=== PATIENT | male | born 1940 | race Caucasian/White ===

== ENCOUNTER 2025-06-14 11:06 | Observation (INO) ==
--- NOTE | 2025-06-12 08:37 | Anesthesiology Consultation ---
Date of Service June 12, 2025 Assessment & Plan (1) Encounter for pre-operative examination: Chart Review Chart Review: Acceptable Risk for Surgery (pending DOS labs and EKG ) and Patient NOT seen in Pre Admission Testing - Check CBC with diff and BMP stat DOS (not done preoperatively) - Check EKG stat DOS (EKG scanned from 08/23/24 cannot be read due to poor quality) - Check BSG AM DOS -Infectious Disease screening: Per PAT nursing assessment on 06/08/25. No known infectious disease contacts in past 10 days or current infectious disease symptoms. No recent travel outside the country. Cardiology preop letter 06/05/25= "Patient is considered "low to intermediate cardiac risk" for upcoming procedure... Hold Plavix for 7 days. (Spoke with patient 06/12/25 as Plavix is not noted in medication list and he states cardiology took him off Plavix a month ago; no mention of cardiology discontinuing med per cardio records- did inform cardio office on 06/12/25 that patient believed he was not to take Plavix any longer- will leave to behavioral health specialist's discretion if that is correct and to follow up with patient if n eeded ) History Surgery Operation Date: 06/14/25 11:20 Proposed Procedures p Right Superficial Parotidectomy with Facial Never Dissection and Possible Right Selective Neck Dissection - Guillaume Robledo II, MD Height/Weight Height: 5 ft 10 in Weight: 69.853 kg Allergies Allergy/AdvReac Type Severity Reaction Status Date / Time ciprofloxacin Allergy Unknown Unknown Verified 06/08/25 10:20 gentamicin Allergy Unknown Unknown Verified 06/08/25 10:20 niacin Allergy Unknown Unknown Verified 06/08/25 10:20 Penicillins Allergy Unknown Rash Verified 06/08/25 10:20 simvastatin [From Zocor] Allergy Unknown Unknown Verified 06/08/25 10:20 Medications Home Medications Medication Instructions Recorded Confirmed Last Taken aspirin 81 mg chewable tablet 81 mg PO QPM 05/10/25 06/08/25 Unknown (Faviola Chewable Low Dose Aspirin) atorvastatin 80 mg tablet 40 mg PO QPM 05/10/25 06/08/25 Unknown cholecalciferol (vitamin D3) 25 25 mcg PO DAILY 05/10/25 06/08/25 Unknown mcg (1,000 unit) tablet ferrous sulfate 325 mg (65 mg 325 mg PO BID 05/10/25 06/08/25 Unknown iron) tablet glipizide 5 mg tablet 5 mg PO BID 05/10/25 06/08/25 Unknown isosorbide mononitrate 60 mg 60 mg PO QAM 05/10/25 06/08/25 Unknown tablet,extended release 24 hr loratadine 10 mg tablet 10 mg PO QPM 05/10/25 06/08/25 Unknown magnesium oxide 420 mg tablet 420 mg PO HS 05/10/25 06/08/25 Unknown metformin 500 mg tablet 500 mg PO UD 05/10/25 06/08/25 Unknown omeprazole 20 mg capsule,delayed 40 mg PO BID 05/10/25 06/08/25 Unknown release Past Medical History Medical History Atherosclerotic heart disease of [place] coronary artery with unspecified angina pectoris - follows with [facility] - PCI/VIKAS to mid LAD 10/21/23 - PTCA/stent of ostial LAD 07/25/2009 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 Basal cell carcinoma of skin Benign prostatic hyperplasia Carotid artery disease <50% stenosis to bilateral ICAs per carotid imaging 12/2023 per cardio office visit 02/21/25 Chronic rhinitis Diabetes Epiglottic cyst Gastro-esophageal reflux disease without esophagitis High blood pressure HLD (hyperlipidemia) Hoarseness 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 LV normal systolic function. EF 60%. Trace MR, trace to mild TR, mild OH Normal pulm artery pressures Grade I DD (ECHO report is per 02/21/25 cardio office visit- attempted multiple times to get actual report but was unsuccessful) Cardiac Catheterization Date: 10/21/23 Ost LAD to Prox LAD lesion is 10% stenosed Prox LAD to mid LAD lesions is 90% stenosed Mid LAD lesion is 20% stenosed Prox LAD to Mid LAD reduced to 0% Conclusions: Severe longer 90% heavily calcified proximal LAD stenosis. Successful PCI with VIKAS to prox to mid LAD. Patient stent in the ostial LAD
[2025-06-14 10:57] LABS: Hematocrit (blood only) 42.3 % (42.0-52.0); Hemoglobin 13.9 g/dl (14.0-18.0); Immature Granulocytes # (auto) 0.02 K/uL (0.01-0.20); Immature Granulocytes % (auto) 0.3 %; Mean Corpuscular Hemoglobin 28.1 pg (25.0-34.0); Mean Corpuscular Volume 85.6 fL (80.0-100.0); Platelet Count 219 K/uL (130-400); RDW Standard Deviation 38.5 fL (36.4-46.3); Red Blood Count 4.94 M/uL (4.70-6.10); White Blood Count 6.34 K/ul (4.8-10.8)
[2025-06-14] MEDS: LR 15ML/HR IV SCH (11:06)
[2025-06-14 11:07] LABS: Anion Gap 9.0 (3-11); Blood Urea Nitrogen 20.0 mg/dl (6-23); Calcium 9.5 mg/dl (8.6-10.3); Carbon Dioxide 28.0 mmol/L (21-32); Chloride 101.0 mmol/L (98-107); Creatinine Clr Calc Pharmacy 65.3 ml/min; Glucose 207.0 mg/dl (70-99(Fasting)); Potassium 4.6 mmol/L (3.5-5.1); Sodium 138.0 mmol/L (136-145)
--- NOTE | 2025-06-14 11:34 | History & Physical Bridge Note ---
Date of Service June 14, 2025 History & Physical Bridge Note I have examined the patient, reviewed the History & Physical and in the interval since the performance of the History & Physical I have noted the following changes of clinical significance: no changes noted
[2025-06-14] MEDS ORDERED: ATROPINE SULFATE 0.1 MG/ML 10ML SYR IV PRN (12:45)
[2025-06-14] MEDS ORDERED: ONDANSETRON INJ 2 MG/ML 2 ML VIAL IV PRN ×2 (12:45→14:52)
[2025-06-14] MEDS ORDERED: PROPOFOL IV EMULSION 10 MG/ML 20 ML VIAL IV ONE (12:56)
[2025-06-14] MEDS ORDERED: LIDOCAINE 2% 2 ML VIAL/AMP(20MG/ML) INFIL ONE (12:56)
[2025-06-14] MEDS ORDERED: SUCCINYLCHOLINE CHLORIDE 20 MG/ML 10 ML VIAL IV ONE (12:56)
[2025-06-14] MEDS ORDERED: REMIFENTANIL HCL 1 MG VIAL IV ONE (13:01)
[2025-06-14] MEDS: CLINDAMYCIN/D5W 900 MG/50 ML BAG IV SCH (13:07)
[2025-06-14] MEDS ORDERED: KETOROLAC TROMETHAMINE 15 MG/ML VIAL IV PRN (13:15)
[2025-06-14] MEDS: CLINDAMYCIN 900 MG/D5W 50 ML BAG IV ONE (13:45)
[2025-06-14] MEDS ORDERED: ROCURONIUM BROMIDE 10 MG/ML 5 ML VIAL IV ONE (13:51)
[2025-06-14] MEDS ORDERED: ONDANSETRON INJ 2 MG/ML 2 ML VIAL ONE (13:56)
[2025-06-14] MEDS ORDERED: DEXAMETHASONE SOD INJ 4 MG/ML VIAL ONE (13:56)
[2025-06-14] MEDS: LIDOCAINE 1%/EPINEPHRINE 1:100,000 50 ML VIAL ONE (14:35)
[2025-06-14] MEDS: BACITRACIN OINT 14 GM TUBE EXT ONE (14:36)
[2025-06-14] MEDS ORDERED: HYDROCODONE/ACETAMOPHEN 5/325MG TAB PO PRN (14:52)
--- NOTE | 2025-06-14 14:52 | Operative Report ---
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 Fibrotic attachments to the sternocleidomastoid muscle were able to be transected and the tumor mobilized without violating the capsule grossly. Is able to preserve lower division of the facial nerve and all its branches. There was no adenopathy otherwise in the neck or face. Facial nerve function and normally with stimulation at the main trunk with point 8 mA stimulation upon completion Specimens Right superficial parotid lobe containing tumor Anesthesia Type General Disposition Accompanied Patient To Recovery: Yes Disposition: Recovery Room Description of Procedure Patient was explained the risks and the consent signed. He confirmed the right parotid gland is a surgical site that was marked in holding. He was taken the operating room and general anesthesia induced avoiding long-acting paralytic agents. Nims facial nerve percutaneous electrodes were placed and functionality of the system verified. I planned an incision in the preauricular crease around the ear lobule into a superior cervical crease on the right and the face was sterilely prepped and draped with the entire face visible through an Ioban. The skin was incised down through subcutaneous tissue to identify the preparotid plane. A flap was elevated along this plane to expose the superficial surface of the parotid gland. Inferiorly the mass could be palpated. It was mobilized away from the sternocleidomastoid muscle in all directions using blunt and sharp dissection without violating the mass. The undersurface of the mass was elevated off the muscle and retracted superiorly. The digastric muscle was identified deep to the sternocleidomastoid muscle and soft tissue superficial to this was transected further mobilizing the inferior portion of the gland with the tumor. The preauricular preparotid attachments were bluntly dissected and transected with harmonic scalpel. The gland was retracted gently forward and the hemostat used to gently spread anterior to the tragal pointer to identify the main trunk of the facial nerve. Once visualized it was stimulated verifying the structure and soft tissue superficial to this plane was transected with the harmonic mobilizing the gland nicely. The inferior division of the facial nerve was followed forward dissecting parotid tissue off along a broad plane. This mobilized the tumor completely as it was elevated with a superior cuff of normal-appearing parotid tissue well away from all branches of the lower division of the facial nerve. Followed the zygomatic branch forward and superficial to this the harmonic scalpel was used to divide parotid tissue defining the superior margin of dissection. Final anterior attachments were transected and the lobe containing the tumor removed and passed as specimen. Wound was irrigated and confirmed to be hemostatic using judicious bipolar cautery. Floseal was applied throughout the wound. A 10 mm drain was laid within the wound and brought out through the inferior skin flap. The incision was closed in layers reapproximating subcutaneous and platysmal layers with interrupted 4-0 and 5-0 Vicryl. Running 5-0 nylon was used to close skin. Procedure was terminated sterile drain dressing was applied patient aroused and transported to the recovery room in stable condition I attest to the content of the Intraoperative Record and any orders documented therein. Any exceptions are noted below.
--- NOTE | 2025-06-14 15:47 | Anesthesiology Progress Note ---
Date of Service June 14, 2025 Anesthesia Post Procedure Vital Signs Vital Signs: Temp Pulse Pulse Resp BP BP Pulse Ox 06/14/25 15:40 68 12 174/80 H 100 06/14/25 15:30 67 16 166/82 H 100 06/14/25 15:20 68 12 170/92 H 100 06/14/25 15:12 36.0 C L 67 16 169/78 H 100 06/14/25 10:49 36.3 C L 77 18 158/77 H 98 O2 Del Method O2 Flow Rate 06/14/25 15:40 Oxymask 2 06/14/25 15:30 Oxymask 2 06/14/25 15:20 Oxymask 4 06/14/25 15:12 Oxymask 6 06/14/25 10:49 Room Air Pain Intensity Right Neck: Pain Intensity: 6 Transfer of Care Handoff Completed per policy Notes Mental Status: alert / awake / arousable Patient Amnestic to Procedure: Yes Nausea / Vomiting: adequately controlled Pain: adequately controlled Airway Patency, RR, SpO2: stable & adequate BP & HR: stable & adequate Hydration State: stable & adequate Anesthetic Complications: no major complications apparent
[2025-06-14] MEDS: SODIUM CHLORIDE 0.9% 1,000 ML IV SCH (17:38)
--- NOTE | 2025-06-14 18:13 | Electrocardiogram Report ---
Test Reason : Blood Pressure : */* mmHG Vent. Rate : 72 BPM Atrial Rate : 72 BPM P-R Int : 146 ms QRS Dur : 90 ms QT Int : 422 ms P-R-T Axes : 42 36 50 degrees QTcB Int : 462 ms Normal sinus rhythm No previous ECGs available Confirmed by Rajendra Wiggins ([id number]) on 06/14/2025 6:13:14 PM Referred By: Guillaume Robledo Confirmed By: Rajendra Wiggins
[2025-06-14] MEDS ORDERED: CARBOHYDRATES FOR HYPOGLYCEMIA PO PRN (19:04)
[2025-06-14] MEDS ORDERED: DEXTROSE 50% 50 ML SYRINGE IV PRN (19:04)
[2025-06-14] MEDS ORDERED: GLUCOSE 40% GEL 15 GM TUBE PO PRN (19:04)
[2025-06-14] MEDS ORDERED: GLUCOSE 10 TAB/TUBE PO PRN (19:04)
[2025-06-14] MEDS ORDERED: diphenhydrAMINE Capsule 25 MG CAP PO PRN (19:04)
[2025-06-14] MEDS ORDERED: GLUCAGON FOR INJ 1 MG VIAL SQ PRN (19:04)
--- NOTE | 2025-06-14 19:20 | Hospitalist Consultation ---
Date of Consultation June 14, 2025 Assessment & Plan (1) Diabetes type 2: (2) CAD (coronary artery disease): (3) Insomnia: (4) High blood pressure: Plan # Postoperative status following right superficial parotidectomy with facial nerve dissection and right selective neck dissection No pain, minimal bruising, drain not draining significantly. Breathing well, no shortness of breath or chest pain. HR normal, afebrile, O2 sat 97% on room air, blood sugar 117. Labs: WBC normal, Hgb 13.9, platelets normal, Na 138, K 4.6, no anion gap, creatinine 0.85, Ca 9.5. EKG: normal sinus rhythm, no acute ischemic changes, mild elevation in V1, potential poor R wave progression. History of coronary disease, essential hypertension, hyperlipidemia, diabetes, carotid artery disease, former smoker. Home meds: Imdur 60 mg q.a.m. Previous cardiology notes: lisinopril 10 mg daily, Imdur 30 mg daily, metoprolol tartrate 25 mg b.i.d., nitroglycerin prn, aspirin, Plavix. Treatment plan: For hypertension: reduce Imdur to 30 mg daily, resume lisinopril 10 mg daily, resume metoprolol, monitor BP. For coronary artery disease: continue daily aspirin and atorvastatin, hold Plavix, continue beta-darin. For diabetes: glipizide 5 mg b.i.d., metformin 1500 mg b.i.d., continue if awake, alert, eating well, monitor blood glucose, short-acting premeal insulin prn. For DVT prophylaxis: subcutaneous heparin 5000 units q8h. # Postoperative hypertension - moderate, acute, asymptomatic and anticipate this will resolve with some time. Avoid overtreating since may cause hypotension. Monitor. History of essential hypertension but resolved and recently normotensive. Postoperative BP 150-174/77-92, likely related to anesthesia and fluid shifts. Treatment plan: Reduce Imdur to 30 mg daily which I think is his actual dose, oral clonidine PRN severe HTN with SBP>180 / DBP>100. # Coronary artery disease - stable History of coronary artery disease, coronary angiogram 10/21/2023 showing 90% proximal to mid LAD stenosis treated with PCI. Treatment plan: Continue daily aspirin and atorvastatin, imdur. No longer on plavix or beta darin # Diabetes mellitus Glipizide 5 mg b.i.d., metformin 1500 mg b.i.d. Treatment plan: Continue metformin since awake, alert, eating well, hold glipizide, monitor blood glucose, short-acting premeal insulin (CF only no CR) prn. # DVT Prophylaxis: subcutaneous heparin 5000 units q8h It was a pleasure to meet Mr. Barth and I will follow-up tomorrow, please page the [facility] hospitalist for any questions or concerns in the meantime Medical Complexity: moderate time spent for consultation 46 minutes - including chart review, outside record s review, reviewing his labs and studies, interviewing and examining patient, writing orders, documentation. History of Present Illness Reason for Consultation: Uncontrolled hypertension, CAD, DM type 2 Requesting Physician: Dr. Robledo Attending Physician: Guillaume Robledo II, MD History of Present Illness The patient consented to use of [employer], an AI based tool that will listen to our encounter and draft a clinical note based on our conversation. All notes will be reviewed and edited by me before entering them into the clinical record. Reason for Admit: Postoperative consultation following right superficial parotidectomy with facial nerve dissection and right selective neck dissection, postoperative hypertension 74-year-old male presents for postoperative consultation. Hypertensive with BP 150-174/77-92 postop, HR normal, afebrile, O2 sat 97% on room air. BP has significantly improved since immediately postop, now in 150s/80s and asymptomatic. He is not in pain nor anxious, no CP or shortness of breath. He has history of hypertension but he lost a lot of weight following surgery for gangrenous gallbladder this summer and recently has been normotensive to low. Monitors BP at home 2-3 times a week, typically 110/70. Discontinued lisinopril and metoprolol due to low BP. Takes Imdur and aspirin daily, not taken Plavix for some time. Takes atorvastatin for cholesterol. Patient feels well, no pain or discomfort, no pain swallowing or speaking. Active lifestyle, walks daily, regained weight through physical therapy and eating well, continues to walk and lift weights. Scheduled to see Dr. Robledo next Wednesday for postop follow up. No residual abdominal pain from gallbladder surgery, no nausea, vomiting, or diarrhea. Occasional leg edema, not severe. PMH: History of coronary disease, essential hypertension, hyperlipidemia, diabetes, carotid artery disease, remote former smoker. PSH: History of skin cancer treated with surgery. July 2000 colonoscopy led to removal of 6 inches of colon, biopsy negative for cancer. Allergies Allergy/AdvReac Type Severity Reaction Status Date / Time ciprofloxacin Allergy Unknown Unknown Verified 06/14/25 10:52 gentamicin Allergy Unknown Unknown Verified 06/14/25 10:52 niacin Allergy Unknown Unknown Verified 06/14/25 10:52 Penicillins Allergy Unknown Rash Verified 06/14/25 10:52 simvastatin [From Zocor] Allergy Unknown Unknown Verified 06/14/25 10:52 Home Medications Medication Instructions Recorded Confirmed Type aspirin 81 mg chewable tablet 81 mg PO QPM 05/10/25 06/14/25 History (Faviola Chewable Low Dose Aspirin) atorvastatin 80 mg tablet 40 mg PO QPM 05/10/25 06/14/25 History cholecalciferol (vitamin D3) 25 25 mcg PO DAILY 05/10/25 06/14/25 History mcg (1,000 unit) tablet ferrous sulfate 325 mg (65 mg 325 mg PO BID 05/10/25 06/14/25 History iron) tablet glipizide 5 mg tablet 5 mg PO BID 05/10/25 06/14/25 History isosorbide mononitrate 60 mg 60 mg PO QAM 05/10/25 06/14/25 History tablet,extended release 24 hr loratadine 10 mg tablet 10 mg PO QPM 05/10/25 06/14/25 History magnesium oxide 420 mg tablet 420 mg PO HS 05/10/25 06/14/25 History metformin 500 mg tablet 500 mg PO UD 05/10/25 06/14/25 History omeprazole 20 mg capsule,delayed 40 mg PO BID 05/10/25 06/14/25 History release Patient History Medical History Carotid artery disease <50% stenosis to bilateral ICAs per carotid imaging 12/2023 per cardio office visit 02/21/25 HLD (hyperlipidemia) Parotid neoplasm Chronic rhinitis Epiglottic cyst Hoarseness Gastro-esophageal reflux disease without esophagitis Diabetes High blood pressure Unspecified hearing loss, unspecified ear 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 Benign prostatic hyperplasia Basal cell carcinoma of skin 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 - follows with [facility] - PCI/VIKAS to mid LAD 10/21/23 - PTCA/stent of ostial LAD 07/25/2009 Surgical History History of cholecystectomy 03/30/25 per [place] records History of heart artery stent (10/2023) and 2008 per records History of bowel resection History of cataract surgery Family History Other Cancer Heart disease Hypertension Social History Smoking Status: Never smoker Tobacco Type: Cigarettes packs per day: 1; Second Hand Exposure: No; Do You Dip or Chew Tobacco: No; Tobacco Cessation Education Requested by Patient: No Hx Alcohol Use: No Hx Substance Use: No Preferred Language: Setswana Hearing Ability: Use of Hearing Aid Shadowgraph Operator Required: No Beliefs That Will Affect Care: None marital status: Current Living Situation: Spouse current occupational status: employed current occupation: [employer] Other Information That Helps Us Care for You: No Feels Safe at Home: Yes Safety Concerns: Feels Safe At This Time caffeine: Yes Dental Care, Regularly: No Assistive Devices: Hearing Aid - Bilateral Review of Systems Review of Systems: All systems reviewed & are unremarkable except as noted in HPI & below Physical Exam Physical Exam: General Appearance: Normal. Vital signs: Within normal limits. HEENT: Scars on scalp. Large bandage with drain on right cheek, normal with no strikethrough. Respiratory: Lungs clear bilaterally, good expansion. Cardiovascular: Regular rhythm, no murmurs, rubs, or gallops. Gastrointestinal: Soft, nondistended, nontender. Extremities: No edema, warm, well perfused. Skin: Scars on scalp no lesions except one papule. Large bandage with drain on right cheek, normal with no strikethrough. Mild bruising over right clavicle, no hematoma. Neurological: Alert and oriented x4, moving all extremities normally. Psychiatric: Normal. Results & Data Results & Data Vital Signs (Past 12 Hours) Vital Signs Temp Pulse Pulse Resp BP BP Pulse Ox 06/14/25 17:40 36.5 C 83 14 159/78 H 97 06/14/25 16:50 36.5 C 72 14 163/73 H 97 06/14/25 16:20 36.5 C 73 14 174/79 H 99 06/14/25 16:10 70 16 155/72 H 97 06/14/25 16:00 36.4 C L 69 16 167/83 H 96 06/14/25 15:50 67 14 169/77 H 100 06/14/25 15:40 68 12 174/80 H 100 06/14/25 15:30 67 16 166/82 H 100 06/14/25 15:20 68 12 170/92 H 100 06/14/25 15:12 36.0 C L 67 16 169/78 H 100 06/14/25 10:49 36.3 C L 77 18 158/77 H 98 O2 Del Method O2 Flow Rate 06/14/25 17:40 Room Air 06/14/25 16:50 Room Air 06/14/25 16:20 Room Air 06/14/25 16:10 Room Air 06/14/25 16:00 Room Air 06/14/25 15:50 Oxymask 2 06/14/25 15:40 Oxymask 2 06/14/25 15:30 Oxymask 2 06/14/25 15:20 Oxymask 4 06/14/25 15:12 Oxymask 6 06/14/25 10:49 Room Air Laboratory Results blood sugar 117. Labs: WBC normal, Hgb 13.9, platelets normal, differential normal, Na 138, K 4.6, no anion gap, creatinine 0.85, Ca 9.5. EKG: normal sinus rhythm, no acute ischemic changes, mild elevation in V1, poor R wave progression. PG Care Time/CCT Total # of Minutes Spent Total Time Spent with Patient: Total time spent is greater than 50% in coordination of care (as documented) at patient's floor/unit and/or counseling patient: Coding Level of Care Code 64900 IN/OBS CONSULT LVL 3,45M Diagnoses Diabetes type 2 E11.9 CAD (coronary artery disease) I25.10 Insomnia G47.00 High blood pressure I10
--- NOTE | 2025-06-14 19:26 | Hospitalist Consultation ---
Date of Consultation June 14, 2025 Assessment & Plan (1) Diabetes type 2: (2) CAD (coronary artery disease): (3) Insomnia: (4) High blood pressure: Plan 84 y/o man postoperative from right parotid surgery 06/14, had postoperative hypertension. Hx HTN (resolved), CAD, DM # Postoperative hypertension - moderate, acute, asymptomatic and anticipate this will resolve with some time. Avoid overtreating since may cause hypotension. Monitor. History of essential hypertension but resolved and recently normotensive. Postoperative BP 150-174/77-92, likely related to anesthesia and fluid shifts. Treatment plan: Reduce Imdur to 30 mg daily which I think is his actual dose, oral clonidine PRN severe HTN with SBP>180 / DBP>100. # Coronary artery disease - stable History of coronary artery disease, coronary angiogram 10/21/2023 showing 90% proximal to mid LAD stenosis treated with PCI. Treatment plan: Continue daily aspirin and atorvastatin, imdur. No longer on plavix or beta darin # Diabetes mellitus Glipizide 5 mg b.i.d., metformin 1500 mg b.i.d. Treatment plan: Continue metformin since awake, alert, eating well, hold glipizide, monitor blood glucose, short-acting premeal insulin (CF only no CR) prn. # DVT Prophylaxis: subcutaneous heparin 5000 units q8h It was a pleasure to meet Mr. Barth and I will follow-up tomorrow, please page the [facility] hospitalist for any questions or concerns in the meantime Medical Complexity: moderate time spent for consultation 46 minutes - including chart review, outside records review, reviewing his labs and studies, interviewing and examining patient, writing orders, documentation. History of Present Illness Reason for Consultation: uncontrolled postoperative hypertension, CAD, DM type 2 Requesting Physician: Dr. Robledo Attending Physician: Guillaume Robledo II, History of Present Illness The patient consented to use of [employer], an AI based tool that will listen to our encounter and draft a clinical note based on our conversation. All notes will be reviewed and edited by me before entering them into the clinical record. Reason for Admit: Postoperative consultation following right superficial parotidectomy with facial nerve dissection and right selective neck dissection, postoperative hypertension 74-year-old male presents for postoperative consultation. Hypertensive with BP 150-174/77-92 postop, HR normal, afebrile, O2 sat 97% on room air. BP has significantly improved since immediately postop, now in 150s/80s and asymptomatic. He is not in pain nor anxious, no CP or shortness of breath. He has history of hypertension but he lost a lot of weight following surgery for gangrenous gallbladder this summer and recently has been normotensive to low. Monitors BP at home 2-3 times a week, typically 110/70. Discontinued lisinopril and metoprolol due to low BP. Takes Imdur and aspirin daily, not taken Plavix for some time. Takes atorvastatin for cholesterol. Patient feels well, no pain or discomfort, no pain swallowing or speaking. Active lifestyle, walks daily, regained weight through physical therapy and eating well, continues to walk and lift weights. Scheduled to see Dr. Robledo next Wednesday for postop follow up. No residual abdominal pain from gallbladder surgery, no nausea, vomiting, or diarrhea. Occasional leg edema, not severe. PMH: History of coronary disease, essential hypertension, hyperlipidemia, diabetes, carotid artery disease, remote former smoker. PSH: History of skin cancer treated with surgery. July 2000 colonoscopy led to removal of 6 inches of colon, biopsy negative for cancer. Allergies Allergy/AdvReac Type Severity Reaction Status Date / Time ciprofloxacin Allergy Unknown Unknown Verified 06/14/25 10:52 gentamicin Allergy Unknown Unknown Verified 06/14/25 10:52 niacin Allergy Unknown Unknown Verified 06/14/25 10:52 Penicillins Allergy Unknown Rash Verified 06/14/25 10:52 simvastatin [From Zocor] Allergy Unknown Unknown Verified 06/14/25 10:52 Home Medications Medication Instructions Recorded Confirmed Type aspirin 81 mg chewable tablet 81 mg PO QPM 05/10/25 06/14/25 History (Faviola Chewable Low Dose Aspirin) atorvastatin 80 mg tablet 40 mg PO QPM 05/10/25 06/14/25 History cholecalciferol (vitamin D3) 25 25 mcg PO DAILY 05/10/25 06/14/25 History mcg (1,000 unit) tablet ferrous sulfate 325 mg (65 mg 325 mg PO BID 05/10/25 06/14/25 History iron) tablet glipizide 5 mg tablet 5 mg PO BID 05/10/25 06/14/25 History isosorbide mononitrate 60 mg 60 mg PO QAM 05/10/25 06/14/25 History tablet,extended release 24 hr loratadine 10 mg tablet 10 mg PO QPM 05/10/25 06/14/25 History magnesium oxide 420 mg tablet 420 mg PO HS 05/10/25 06/14/25 History metformin 500 mg tablet 500 mg PO UD 05/10/25 06/14/25 History omeprazole 20 mg capsule,delayed 40 mg PO BID 05/10/25 06/14/25 History release Patient History Medical History Carotid artery disease <50% stenosis to bilateral ICAs per carotid imaging 12/2023 per cardio office visit 02/21/25 HLD (hyperlipidemia) Parotid neoplasm Chronic rhinitis Epiglottic cyst Hoarseness Gastro-esophageal reflux disease without esophagitis Diabetes Unspecified hearing loss, unspecified ear 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 Benign prostatic hyperplasia Basal cell carcinoma of skin 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 Atherosclerotic heart disease of [place] coronary artery with unspecified angina pectoris - follows with [facility] - PCI/VIKAS to mid LAD 10/21/23 - PTCA/stent of ostial LAD 07/25/2009 Surgical History History of cholecystectomy 03/30/25 per [place] History of heart artery stent (10/2023) and 2008 per records History of bowel resection History of cataract surgery Family History Other Cancer Heart disease Hypertension Social History Smoking Status: Never smoker Tobacco Type: Cigarettes packs per day: 1; Second Hand Exposure: No; Do You Dip or Chew Tobacco: No; Tobacco Cessation Education Requested by Patient: No Hx Alcohol Use: No Hx Substance Use: No Preferred Language: Turkmen Hearing Ability: Use of Hearing Aid 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 Vital signs: Within normal limits. HEENT: Scars on scalp. Large bandage with drain on right cheek, normal with no strikethrough. Respiratory: Lungs clear bilaterally, good expansion. Cardiovascular: Regular rhythm, no murmurs, rubs, or gallops. Gastrointestinal: Soft, nondistended, nontender. Extremities: No edema, warm, well perfused. Skin: Scars on scalp no lesions except one papule. Large bandage with drain on right cheek, normal with no strikethrough. Mild bruising over right clavicle, no hematoma. Neurological: Alert and oriented x4, moving all extremities normally. Psychiatric: Normal. Results & Data Results & Data Vital Signs (Past 12 Hours) Vital Signs Temp Pulse Pulse Resp BP BP Pulse Ox 06/14/25 19:21 36.8 C 87 18 161/67 H 96 06/14/25 17:40 36.5 C 83 14 159/78 H 97 06/14/25 16:50 36.5 C 72 14 163/73 H 97 06/14/25 16:20 36.5 C 73 14 174/79 H 99 06/14/25 16:10 70 16 155/72 H 97 06/14/25 16:00 36.4 C L 69 16 167/83 H 96 06/14/25 15:50 67 14 169/77 H 100 06/14/25 15:40 68 12 174/80 H 100 06/14/25 15:30 67 16 166/82 H 100 06/14/25 15:20 68 12 170/92 H 100 06/14/25 15:12 36.0 C L 67 16 169/78 H 100 06/14/25 10:49 36.3 C L 77 18 158/77 H 98 O2 Del Method O2 Flow Rate 06/14/25 19:21 Room Air 06/14/25 17:40 Room Air 06/14/25 16:50 Room Air 06/14/25 16:20 Room Air 06/14/25 16:10 Room Air 06/14/25 16:00 Room Air 06/14/25 15:50 Oxymask 2 06/14/25 15:40 Oxymask 2 06/14/25 15:30 Oxymask 2 06/14/25 15:20 Oxymask 4 06/14/25 15:12 Oxymask 6 06/14/25 10:49 Room Air Laboratory Results blood sugar 117. Labs: WBC normal, Hgb 13.9, platelets normal, differential normal, Na 138, K 4.6, no anion gap, creatinine 0.85, Ca 9.5. EKG: normal sinus rhythm, no acute ischemic changes, mild elevation in V1, poor R wave progression. PG Care Time/CCT Total # of Minutes Spent Total Time Spent with Patient: Total time spent is greater than 50% in coordination of care (as documented) at patient's floor/unit and/or counseling patient: Coding Level of Care Code 61858 IN/OBS CONSULT LVL 3,45M Diagnoses Diabetes type 2 E11.9 CAD (coronary artery disease) I25.10 Insomnia G47.00 High blood pressure I10
[2025-06-14] MEDS: LORATADINE 10 MG TAB PO SCH (20:16)
[2025-06-14] MEDS: ASPIRIN 81 MG CHEW PO SCH (20:16)
[2025-06-14] MEDS: MAGNESIUM OXIDE 400 MG TAB PO SCH (20:17)
[2025-06-14] MEDS: FERROUS SULFATE 325 MG TAB PO SCH (20:17)
[2025-06-14] MEDS: ATORVASTATIN 40 MG TAB PO SCH (20:17)
[2025-06-14] MEDS: CLINDAMYCIN/D5W 600 MG/50 ML BAG IV SCH (20:18)
[2025-06-14] MEDS: INSULIN ASPART PER UNIT CHARGE SC SCH (20:29)
[2025-06-14] MEDS: HEPARIN SOD 5,000 UNIT/0.5 ML VIAL SQ SCH (21:56)
[2025-06-14] MEDS: MELATONIN 3 MG TAB PO PRN (22:02)
[2025-06-15 04:52] VITALS: O2SAT 98
[2025-06-15] MEDS: HYDROCODONE/ACETAMOPHEN 5/325MG TAB PO PRN (05:10)
--- NOTE | 2025-06-15 07:28 | Communication Note ---
Date of Service: June 15, 2025 Note to follow Hypertensive until 7pm Overnight and this am BP at goal for age - 137/69, 125/67. Transient postop hypertension seems to have resolved. If otherwise doing well postop can be discharged on his usual home medications
[2025-06-15] MEDS ORDERED: glipiZIDE 5 MG TAB PO SCH (07:30)
[2025-06-15 08:20] VITALS: TEMP 97.3
[2025-06-15] MEDS: CHOLECALCIFEROL 25 MCG (1000 UNITS) TAB PO SCH (08:23)
[2025-06-15] MEDS: ISOSORBIDE MONO EXTENDED REL 30 MG TABCR PO SCH (08:23)
[2025-06-15] MEDS ORDERED: ISOSORBIDE MONO EXTENDED REL 60 MG TABCR PO SCH (09:00)
[2025-06-15 11:48] VITALS: BP 138/68; PULSE 75; RESP 16
--- NOTE | 2025-06-15 15:18 | Discharge Summary ---
Date of Service June 15, 2025 Admission HPI Per Admitting Provider pod#1, no issues. postop HiBP is resolved. Admission Exam (Per Admitting) Constitutional WD/WN, vitals as above Neck incision intact. no collection or hematoma. sutures clear. drain removed (10-20ml per shift) Full facial nerve function noted. Discharge Data Consultations 06/14/25 16:40 Consult Hospitalist Routine Procedures Performed Operation Date: 06/14/25 12:00 Actual Procedures p Right Superficial Parotidectomy with Facial Nerve Dissection and Right Selective Neck Dissection(Right) - Guillaume Robledo II, MD Hospital Course (1) Parotid neoplasm: (2) High blood pressure: Plan admitted postop , initially BP high. Medicine consulted and treated. Issue resolved at d/c recieved 24 hours abx and JEANINE output decline over 24 hours. drain removed. stable for d/c pod#1 Discharge Instructions writen on D/C notes. No pain med needed in house. use Tylenol prn at home. no rx May shower avoid heavy lifting for a week call for temp greater than 101.5, swelling increased pain or redness
--- NOTE | 2025-06-15 19:08 | Hospitalist Progress Note ---
Date of Service June 15, 2025 Assessment & Plan (1) Diabetes type 2: (2) CAD (coronary artery disease): (3) Insomnia: (4) High blood pressure: Plan 84 y/o man postoperative from right parotid surgery 06/14, had postoperative hypertension. Hx HTN (resolved), CAD, DM # Postoperative hypertension - moderate, acute, asymptomatic and resolved overnight -continue his usual Imdur on discharge # Coronary artery disease - stable History of coronary artery disease, coronary angiogram 10/21/2023 showing 90% proximal to mid LAD stenosis treated with PCI. Treatment plan: Continue daily aspirin and atorvastatin, imdur. No longer on plavix or beta darin # Diabetes mellitus BG high last night in low 300s but 120s this am Continue home meds: Glipizide 5 mg b.i.d., metformin 1500 mg b.i.d. d/w Dr. Robledo, plan for dc home this afternoon Admission and Anticipated Discharge Date Admission Date: June 14, 2025 Subjective Seen in AM Doing great, eating bfast No pain from R cheek surgical site BP normal this AM Physical Exam Physical Exam: General Appearance: Normal. Vital signs: Within normal limits. HEENT: Large bandage with drain on right cheek, normal with no strikethrough. - unchanged Rest of exam unchanged 06/15 Respiratory: Lungs clear bilaterally, good expansion. Cardiovascular: Regular rhythm, no murmurs, rubs, or gallops. Gastrointestinal: Soft, nondistended, nontender. Extremities: No edema, warm, well perfused. Neurological: Alert and oriented x4, moving all extremities normally. Psychiatric: Normal. Results & Data Results & Data Vital Signs (Past 12 Hours) Vital Signs Temp Pulse Resp BP Pulse Ox O2 Del Method 06/15/25 11:00 36.3 C L 75 16 138/68 98 Room Air PG Care Time/CCT Total # of Minutes Spent Total Time Spent with Patient: Total time spent is greater than 50% in coordination of care (as documented) at patient's floor/unit and/or counseling patient: Coding Level of Care Code 18188 SUB INP/OBS CARE 2/35MIN Diagnoses Diabetes type 2 E11.9 CAD (coronary artery disease) I25.10 Insomnia G47.00 High blood pressure I10
== END 2025-06-15 16:04 | disposition home or self-care (01) ==
LOC: 3W 11:06 → ASU 11:06